=== PATIENT | female | born 1985 | race Caucasian/White ===

== ENCOUNTER 2020-09-01 18:55 | Outpatient (REF) | payer OTHER, SELFPAY ==
[2020-09-01 20:06] LABS: COVID-19 Test Positive (Negative)
== END 2020-09-01 18:56 | disposition home or self-care (01) ==
LOC: HO.EMPCOV 18:55
PROVIDERS: Visit Provider Internal Medicine
DX: Z20.828 Contact with and (suspected) exposure to other viral communicable diseases (principal)
CPT/HCPCS: 87635